=== PATIENT | male | born 1960 | race Caucasian/White ===

== ENCOUNTER 2023-12-08 13:50 | Outpatient (CLI) | payer OTHER ==
[~2023-12-08] VITALS: Ht 213.4 cm; Wt 158.8 kg
[2023-12-08] MEDS: albuterol 2.5 MG/3 ML nebule NEB ONE (14:18)
[2023-12-08 14:19] VITALS: PULSE 80; RESP 15; O2SAT 96
== END 2023-12-08 23:59 | disposition home or self-care (01) ==
LOC: RT 13:50
PROVIDERS: ATTEND Chiropractor
DX: J44.9 Chronic obstructive pulmonary disease, unspecified (principal)
CPT/HCPCS: 71046; 94060; 94760